=== PATIENT | female | born 1950 | race Caucasian/White ===

== ENCOUNTER 2018-11-19 02:05 | Observation (INO) | payer OTHER, MEDICAID ==
[~2018-11-19] VITALS: Ht 149.9 cm; Wt 77.5 kg
[~2018-11-19 02:05] MED LIST: ASPI-831 PO; ATOR20TA38 PO; GLIM4TAB PO; METO-319 PO; SITA50TA2 PO
[2018-11-20] VITALS (7 sets, daily range): BP systolic 135–163; BP diastolic 61–72; PULSE 64–71; RESP 18–20; Ht 149.9 cm; Wt 77.5 kg
[2018-11-20] MEDS ORDERED: ONDANSETRON 4 MG INJ IV PRN (03:00)
[2018-11-20] MEDS ORDERED: morphine 2 MG INJ IV PRN (03:00)
[2018-11-20] MEDS ORDERED: NITROGLYCERIN (SL) 0.4 MG TAB SL PRN (03:00)
[2018-11-20] MEDS ORDERED: NACL 0.9% 3 ML SYG IV SCH (03:00)
[2018-11-20] MEDS ORDERED: DOCUSATE SODIUM 100 MG CAP PO PRN (03:00)
[2018-11-20] MEDS ORDERED: ENALAPRILAT 1.25 MG INJ IV PRN (03:00)
[2018-11-20] MEDS ORDERED: GLUCAGON 1 MG INJ IM PRN (03:30)
[2018-11-20] MEDS ORDERED: GLUCOSE GEL 15 GRAM TUBE BUCCAL PRN (03:30)
[2018-11-20] MEDS ORDERED: GLUCOSE GEL 15 GRAM TUBE PO PRN ×2 (03:30)
[2018-11-20] MEDS ORDERED: DEXTROSE 50% 50 ML SYRINGE IV PRN ×2 (03:30)
[2018-11-20] MEDS: DEXTROSE 5%-0.45% NACL 1,000 ML IV SCH ×2 (03:50→17:11)
[2018-11-20] MEDS: HEPARIN 5,000 UNIT/1 ML VIAL SC SCH ×3 (05:31→22:52)
[2018-11-20] MEDS: FAMOTIDINE 20 MG INJ IV SCH ×2 (08:55→20:35)
[2018-11-20] MEDS: INSULIN ASPART [NOVOLOG] 3 ML PEN SC SCH ×4 (08:59→20:56)
[2018-11-20] MEDS ORDERED: INSULIN GLARGINE [LANTus] (100 UNITS/ML) SYG SC ONE (11:00)
[2018-11-20] MEDS ORDERED: REGADENOSON 0.4 MG/5 ML SYG ONE (11:08)
--- NOTE | 2018-11-20 11:55 | CONS ---
Assessment/Plan Assessment/Plan Hospital Course (Demo Recall) Chest pain History of encephalopathy and UTI Hypertension diabetes dyslpidemia Recommendation: Echocardiogram Avril scans are pending Continue with the medical optimization Telemetry monitoring for now Thank you for his referral. We will continue to follow along with you LEE ESCALANTE MD [facility] Consultation Date/Type/Reason Admit Date/Time Nov 20, 2018 at 02:11 Date of Consultation: Nov 20, 2018 Type of Consult Cardiology Reason for Consultation cp Requesting Provider: KIKO ASHLEY MD Date/Time of Note DATE: 11/20/18 TIME: 11:53 Hx of Present Illness cardiology consult cc and reason for consult: chest pain HPI This is a 68 year old who was transferred for evaluation of her chest pian pt is a poor historian. old records reviewed. pt was seen at [facility] with c/o ant chest pain . can not explain any exacerbating or relieving factor. intermittent and nonexertiona. PMH DM HTN Dyslipidemia recent admission with UTI altered LOC MEDS REVIEWED SOCIAL NONSMOKER Family hx no CAD ROS: as above . Past Medical History Home Meds Reported Medications Glimepiride* (Glimepiride*) 4 Mg Tablet, 4 MG PO WITH BREAKFAST, TAB 11/20/18 Sitagliptin* (Januvia*) 50 Mg Tablet, 50 MG PO BID, #30 TAB 11/20/18 Medications Current Medications Aspirin (Aspirin) 81 mg DAILY PO ; Start 11/21/18 at 09:00 Nitroglycerin (Nitroglycerin (Sl Tab) 0.4 Mg) 1 tab Q5M PRN SL CHEST PAIN; Start 11/20/18 at 03:00 Morphine Sulfate (morphine) 2 mg Q2H PRN IV PAIN LEVEL 4-6; Start 11/20/18 at 03:00 Dextrose/Sodium Chloride 1,000 ml @ 70 mls/hr [id number] IV Last administered on 11/20/18at 03:50; Admin Dose 70 MLS/HR; Start 11/20/18 at 02:53 IV Flush (NS 3 ml) 3 ml PER PROTOCOL IV ; Start 11/20/18 at 03:00 Ondansetron HCl (Zofran Inj) 4 mg Q6H PRN IV NAUSEA/VOMITING; Start 11/20/18 at 03:00 Docusate Sodium (Colace) 100 mg Q12H PRN PO .CONSTIPATION; Start 11/20/18 at 03:00 Famotidine (Pepcid Iv) 20 mg Q12 IV Last administered on 11/20/18at 08:55; Admin Dose 20 MG; Start 11/20/18 at 09:00 Heparin Sodium (Porcine) (Heparin (5000 Units/1ml)) 5,000 unit Q8 SC Last administered on 11/20/18at 05:31; Admin Dose 5,000 UNIT; Start 11/20/18 at 06:00 Insulin Aspart (Novolog Insulin Pen) NOVOLOG *MODERATE* ALGORITHM WITH MEALS BEDTIME SC Last administered on 11/20/18at 08:59; Admin Dose 8 UNIT; Start 11/20/18 at 08:00 Hydralazine HCl (Apresoline) 50 mg TID PO Last administered on 11/20/18at 03:50; Admin Dose 50 MG; Start 11/20/18 at 03:00 Enalaprilat (Vasotec Iv) 1.25 mg Q6H PRN IV SBP> 150 or DBP > 95; Start 11/20/18 at 03:00 Miscellaneous Information 1 ea NOTE XX ; Start 11/20/18 at 03:30 Glucose (Glutose) 15 gm Q15M PRN PO DECREASED GLUCOSE; Start 11/20/18 at 03:30 Glucose (Glutose) 22.5 gm Q15M PRN PO DECREASED GLUCOSE; Start 11/20/18 at 03:30 Dextrose (D50w Syringe) 25 ml Q15M PRN IV DECREASED GLUCOSE; Start 11/20/18 at 03:30 Dextrose (D50w Syringe) 50 ml Q15M PRN IV DECREASED GLUCOSE; Start 11/20/18 at 03:30 Glucagon (Glucagen) 1 mg Q15M PRN IM DECREASED GLUCOSE; Start 11/20/18 at 03:30 Glucose (Glutose) 15 gm Q15M PRN BUCCAL DECREASED GLUCOSE; Start 11/20/18 at 03:30 Insulin Glargine (Lantus) 15 units DAILY@2000 SC ; Start 11/20/18 at 20:00 Allergies: Coded Allergies: No Known Allergy (Unverified , 11/20/18) Social History Smoking Status: Never smoker Exam/Review of Systems Vital Signs Vitals Vital Signs Date Temp Pulse Resp B/P (MAP) Pulse Ox O2 O2 Flow FiO2 Time Delivery Rate 11/20/18 98.3 69 20 141/68 95 Room Air 10:50 (92) Exam Exam General: Obese no acute distress HEENT: NC/AT. pupils are equal. round. NECK: NO JVD. no stridor. CV: RRR. systolic murmur; no gallop or rubs. PULM: no wheezing or rhonchi. GI: SOFT, NT, ND, no rebound or guarding Extremity: trace B/L LE edema. no clubbing. neuro: awake and alert, . Psych: calm and pleasant rectal: deferred EKG was personally viewed showed normal sinus rhythm normal Labs Result Diagram: 11/20/18 0435 11/20/18 0436 Results 24hrs Laboratory Tests Test 11/20/18 04:35 11/20/18 04:36 11/20/18 08:08 11/20/18 08:25 White Blood Count 10.7 Red Blood Count 4.39 Hemoglobin 12.8 Hematocrit 38.9 Mean Corpuscular 88.6 Volume Mean Corpuscular 29.2 Hemoglobin Mean Corpuscular 32.9 Hemoglobin Concent Red Cell 12.4 Distribution Width Platelet Count 239 Mean Platelet Volume 11.7 H Immature 0.400 Granulocytes % Neutrophils % 50.4 Lymphocytes % 30.8 Monocytes % 9.6 Eosinophils % 8.0 H Basophils % 0.8 Nucleated Red Blood 0.0 Cells % Immature 0.040 H Granulocytes # Neutrophils # 5.4 Lymphocytes # 3.3 H Monocytes # 1.0 H Eosinophils # 0.9 H Basophils # 0.1 Nucleated Red Blood 0.0 Cells # D-Dimer 586.61 H D-Dimer Comment Sodium Level 134 L Potassium Level 3.9 Chloride Level 96 L Carbon Dioxide Level 32 H Anion Gap 6 Blood Urea Nitrogen 13 Creatinine 0.45 Est Glomerular > 60 Filtrat Rate mL/min Glucose Level 292 H Hemoglobin A1c 10.0 H Calcium Level 9.2 Phosphorus Level 3.5 Magnesium Level 1.9 Total Bilirubin 0.4 Direct Bilirubin 0.00 Indirect Bilirubin 0.4 Aspartate Amino 23 Transf (AST/SGOT) Alanine 29 Aminotransferase (AL T/SGPT) Alkaline Phosphatase 84 Creatine Kinase 27 30 Creatine Kinase 3.7 3.4 Index Creatinine Kinase MB 1.00 1.01 (Mass) Troponin I < 0.012 < 0.012 B-Type Natriuretic 241 H Peptide Total Protein 6.1 Albumin 3.2 L Globulin 2.90 Albumin/Globulin 1.10 Ratio Triglycerides Level 194 H Cholesterol Level 172 LDL Cholesterol, 95 Calculated HDL Cholesterol 38 Cholesterol/HDL 4.5 Ratio Free Thyroxine Index 3.01 Thyroxine (T4) 8.2 Triiodothyronine 36.7 (T3) Uptake Urine Opiates Screen Negative Urine Barbiturates Negative Urine Amphetamines Negative Screen Urine Negative Benzodiazepines Screen Urine Cocaine Screen Negative Urine Cannabinoids Negative Test 11/20/18 08:46 Bedside Glucose 288 H Medications Medications Current Medications Aspirin (Aspirin) 81 mg DAILY PO ; Start 11/21/18 at 09:00 Nitroglycerin (Nitroglycerin (Sl Tab) 0.4 Mg) 1 tab Q5M PRN SL CHEST PAIN; Start 11/20/18 at 03:00 Morphine Sulfate (morphine) 2 mg Q2H PRN IV PAIN LEVEL 4-6; Start 11/20/18 at 03:00 Dextrose/Sodium Chloride 1,000 ml @ 70 mls/hr [id number] IV Last administered on 11/20/18at 03:50; Admin Dose 70 MLS/HR; Start 11/20/18 at 02:53 IV Flush (NS 3 ml) 3 ml PER PROTOCOL IV ; Start 11/20/18 at 03:00 Ondansetron HCl (Zofran Inj) 4 mg Q6H PRN IV NAUSEA/VOMITING; Start 11/20/18 at 03:00 Docusate Sodium (Colace) 100 mg Q12H PRN PO .CONSTIPATION; Start 11/20/18 at 03:00 Famotidine (Pepcid Iv) 20 mg Q12 IV Last administered on 11/20/18at 08:55; Admin Dose 20 MG; Start 11/20/18 at 09:00 Heparin Sodium (Porcine) (Heparin (5000 Units/1ml)) 5,000 unit Q8 SC Last administered on 11/20/18 05:31; Admin Dose 5,000 UNIT; Start 11/20/18 at 06:00 Insulin Aspart (Novolog Insulin Pen) NOVOLOG *MODERATE* ALGORITHM WITH MEALS BEDTIME SC Last administered on 11/20/18 08:59; Admin Dose 8 UNIT; Start 11/20/18 at 08:00 Hydralazine HCl (Apresoline) 50 mg TID PO Last administered on 11/20/18at 03:50; Admin Dose 50 MG; Start 11/20/18 at 03:00 Enalaprilat (Vasotec Iv) 1.25 mg Q6H PRN IV SBP> 150 or DBP > 95; Start 11/20/18 at 03:00 Miscellaneous Information 1 ea NOTE XX ; Start 11/20/18 at 03:30 Glucose (Glutose) 15 gm Q15M PRN PO DECREASED GLUCOSE; Start 11/20/18 at 03:30 Glucose (Glutose) 22.5 gm Q15M PRN PO DECREASED GLUCOSE; Start 11/20/18 at 03:30 Dextrose (D50w Syringe) 25 ml Q15M PRN IV DECREASED GLUCOSE; Start 11/20/18 at 03:30 Dextrose (D50w Syringe) 50 ml Q15M PRN IV DECREASED GLUCOSE; Start 11/20/18 at 03:30 Glucagon (Glucagen) 1 mg Q15M PRN IM DECREASED GLUCOSE; Start 11/20/18 at 03:30 Glucose (Glutose) 15 gm Q15M PRN BUCCAL DECREASED GLUCOSE; Start 11/20/18 at 03:30 Insulin Glargine (Lantus) 15 units DAILY@2000 SC ; Start 11/20/18 at 20:00 LEE ESCALANTE MD Nov 20, 2018 11:55
--- NOTE | 2018-11-20 14:43 | RADRPT ---
Vent Rate: 75 bpm RR Interval: 796 msec MS Interval: 161 msec QRS Duration: 80 msec QT Interval: 391 msec QTC Interval: 438 msec P-R-T [place]: 31 - 66 - 71 degrees Sinus rhythm...normal P axis, V-rate 50- 99 Electronically Signed By: Alli Cuevas
--- NOTE | 2018-11-20 17:12 | HP ---
Date/Time of Note Date/Time of Note DATE: 11/20/18 TIME: 17:06 Assessment/Plan VTE Prophylaxis Pharmacological prophylaxis: heparin Lines/Catheters IV Catheter Type (from Nrs): Peripheral IV Assessment/Plan Hospital Course 68 years old female with a history of poorly controlled diabetes, hypertension, and cognitive decline who presented to the emergency room at [facility] with chest pain. She was deemed stable to be transferred for further cardiac work-up to contracted hospital given negative troponin and unremarkable EKG for ACS. Her EKG was however abnormal. Upon admission to [facility] she was chest pain-free. She was recently admitted to [facility] for altered mental status and discharged to rehabilitation. Patient has been recently confused and disoriented to time. She had an episode at home that she exited the house wandering without clothing. She has had a significant cognitive decline over the course of past few months, #Chest pain , serial troponin was negative , no SOB, no pleuritic CP to suggest PE , CP free at the time of visit , echocardiogram and NM Stress test were unremarkable , Patient was seen in consultation with cardiology Dr Guzman . Echo showed Stage I diastolic dysfunction). Moderate concentric left ventricular hypertrophy. The left ventricular ejection fraction is visually estimated at 65 %. - Patient is stable to be discharged home as her cardiac work up was negative for ischemia . I prescribed Metop and ASA as well as Lipitor given poorly controlled DM for risk reduction of CAD #Poorly controlled DM, A1c10 only on Oral agents , will need referral to endocrinology , DW daughter, consulted case management for referral , will b enefit from INsulin , daughter states that they have been prescribed insulin but she is not using because they don't know how to use it , CM consulted for HH # Encephalopathy , chronic , suspect , early dementia , recent admission at [facility] for AMS with negative work up , will need referral to neurology as outpatient for neurocognitive evaluation , CM consulted and discussed with daughter #HTN, started Metop #HLD , started Lipitor #PPX: Heparin and Pepcid Result Diagram: 11/20/18 0435 11/20/18 0436 Results 24hrs Laboratory Tests Test 11/20/18 04:35 11/20/18 04:36 11/20/18 08:08 11/20/18 08:25 White Blood Count 10.7 Red Blood Count 4.39 Hemoglobin 12.8 Hematocrit 38.9 Mean Corpuscular 88.6 Volume Mean Corpuscular 29.2 Hemoglobin Mean Corpuscular 32.9 Hemoglobin Concent Red Cell 12.4 Distribution Width Platelet Count 239 Mean Platelet Volume 11.7 H Immature 0.400 Granulocytes % Neutrophils % 50.4 Lymphocytes % 30.8 Monocytes % 9.6 Eosinophils % 8.0 H Basophils % 0.8 Nucleated Red Blood 0.0 Cells % Immature 0.040 H Granulocytes # Neutrophils # 5.4 Lymphocytes # 3.3 H Monocytes # 1.0 H Eosinophils # 0.9 H Basophils # 0.1 Nucleated Red Blood 0.0 Cells # D-Dimer 586.61 H D-Dimer Comment Sodium Level 134 L Potassium Level 3.9 Chloride Level 96 L Carbon Dioxide Level 32 H Anion Gap 6 Blood Urea Nitrogen 13 Creatinine 0.45 Est Glomerular > 60 Filtrat Rate mL/min Glucose Level 292 H Hemoglobin A1c 10.0 H Calcium Level 9.2 Phosphorus Level 3.5 Magnesium Level 1.9 Total Bilirubin 0.4 Direct Bilirubin 0.00 Indirect Bilirubin 0.4 Aspartate Amino 23 Transf (AST/SGOT) Alanine 29 Aminotransferase (AL T/SGPT) Alkaline Phosphatase 84 Creatine Kinase 27 30 Creatine Kinase 3.7 3.4 Index Creatinine Kinase MB 1.00 1.01 (Mass) Troponin I < 0.012 < 0.012 B-Type Natriuretic 241 H Peptide Total Protein 6.1 Albumin 3.2 L Globulin 2.90 Albumin/Globulin 1.10 Ratio Triglycerides Level 194 H Cholesterol Level 172 LDL Cholesterol, 95 Calculated HDL Cholesterol 38 Cholesterol/HDL 4.5 Ratio Free Thyroxine Index 3.01 Thyroxine (T4) 8.2 Triiodothyronine 36.7 (T3) Uptake Urine Opiates Screen Negative Urine Barbiturates Negative Urine Amphetamines Negative Screen Urine Negative Benzodiazepines Screen Urine Cocaine Screen Negative Urine Cannabinoids Negative Test 11/20/18 08:46 11/20/18 12:57 Bedside Glucose 288 H 183 HPI/ROS Admit Date/Time Admit Date/Time Nov 20, 2018 at 02:11 Hx of Present Illness 68 years old female with a history of poorly controlled diabetes, hypertension, and cognitive decline who presented to the emergency room at [facility] with chest pain. She was deemed stable to be transferred for further cardiac work-up to [facility] given negative troponin and unremarkable EKG for ACS. Her EKG was also abnormal. Upon admission to [facility] she was chest pain-free. Patient is a poor historian. She appears confused. Source of history is based on my conversation with her daughter at the bedside. The admitted to [facility] for altered mental status and discharged to rehabilitation. Patient has been recently confused and disoriented to time. She had an episode at home that she exited the house wandering without clothing. She has had a significant cognitive decline over the course of months, ROS No fever, no chills, no change in weight or appetite. No focal weakness or numbness. No palpitations no orthopnea no PND, no cough, no phlegm. No d iarrhea , melena, no hematochezia, no hematemesis. PMH/Family/Social Past Medical History Medications Current Medications Aspirin (Aspirin) 81 mg DAILY PO ; Start 11/21/18 at 09:00 Nitroglycerin (Nitroglycerin (Sl Tab) 0.4 Mg) 1 tab Q5M PRN SL CHEST PAIN; Start 11/20/18 at 03:00 Morphine Sulfate (morphine) 2 mg Q2H PRN IV PAIN LEVEL 4-6; Start 11/20/18 at 03:00 Dextrose/Sodium Chloride 1,000 ml @ 70 mls/hr [id number] IV Last administered on 11/20/18at 03:50; Admin Dose 70 MLS/HR; Start 11/20/18 at 02:53 IV Flush (NS 3 ml) 3 ml PER PROTOCOL IV ; Start 11/20/18 at 03:00 Ondansetron HCl (Zofran Inj) 4 mg Q6H PRN IV NAUSEA/VOMITING; Start 11/20/18 at 03:00 Docusate Sodium (Colace) 100 mg Q12H PRN PO .CONSTIPATION; Start 11/20/18 at 03:00 Famotidine (Pepcid Iv) 20 mg Q12 IV Last administered on 11/20/18at 08:55; Admin Dose 20 MG; Start 11/20/18 at 09:00 Heparin Sodium (Porcine) (Heparin (5000 Units/1ml)) 5,000 unit Q8 SC Last administered on 11/20/18at 16:29; Admin Dose 5,000 UNIT; Start 11/20/18 at 06:00 Insulin Aspart (Novolog Insulin Pen) NOVOLOG *MODERATE* ALGORITHM WITH MEALS BEDTIME SC Last administered on 11/20/18at 13:01; Admin Dose 4 UNIT; Start 11/20/18 at 08:00 Hydralazine HCl (Apresoline) 50 mg TID PO Last administered on 11/20/18at 03:50; Admin Dose 50 MG; Start 11/20/18 at 03:00 Enalaprilat (Vasotec Iv) 1.25 mg Q6H PRN IV SBP> 150 or DBP > 95; Start 11/20/18 at 03:00 Miscellaneous Information 1 ea NOTE XX ; Start 11/20/18 at 03:30 Glucose (Glutose) 15 gm Q15M PRN PO DECREASED GLUCOSE; Start 11/20/18 at 03:30 Glucose (Glutose) 22.5 gm Q15M PRN PO DECREASED GLUCOSE; Start 11/20/18 at 03:30 Dextrose (D50w Syringe) 25 ml Q15M PRN IV DECREASED GLUCOSE; Start 11/20/18 at 03:30 Dextrose (D50w Syringe) 50 ml Q15M PRN IV DECREASED GLUCOSE; Start 11/20/18 at 03:30 Glucagon (Glucagen) 1 mg Q15M PRN IM DECREASED GLUCOSE; Start 11/20/18 at 03:30 Glucose (Glutose) 15 gm Q15M PRN BUCCAL DECREASED GLUCOSE; Start 11/20/18 at 03:30 Insulin Glargine (Lantus) 15 units DAILY@2000 SC ; Start 11/20/18 at 20:00 Coded Allergies: No Known Allergy (Unverified , 11/20/18) Social History Smoking Status: Never smoker Exam/Review of Systems Vital Signs Vitals Vital Signs Date Temp Pulse Resp B/P (MAP) Pulse Ox O2 O2 Flow FiO2 Time Delivery Rate 11/20/18 98.0 68 18 135/62 98 16:14 (86) 11/20/18 Room Air 10:50 Exam Exam Gen.: In no acute distress, pleasant and cooperative, appears disoriented and disheveled Eyes: Anicteric, conjunctiva normal, PERRLA, EOM intact HEENT: Normocephalic, atraumatic, hearing grossly intact, oral mucosa moist, no oral lesions Neck: Supple, no masses, trachea midline Cardiovascular: Regular rate and rhythm, no peripheral edema, no murmurs, no gallops, no rubs Respiratory: Clear to auscultation bilaterally, no use of accessory muscles of respiration, no wheezes, expiration not prolonged Extremities: No cyanosis, no edema, no calf tenderness, pulses bilaterally palpable, extremities warm and perfused Abdomen: Soft, not distended, nontender, bowel sounds present, no guarding, no rebound Neurological: Alert and oriented x2 disoriented to time , speech is slow CN 2- 12 no deficit, no motor or sensory deficit, coordination normal : No Guaman catheter Dermatologic no rash, no ulcers Heme: No acute bleeding, no ecchymosis or petechia Psych: No anxiety depression, mood and affect appropriate KIKO ASHLEY MD Nov 20, 2018 17:12
--- NOTE | 2018-11-20 17:27 | PDOCDIS ---
Discharge Instructions DIAGNOSIS Discharge Diagnosis Poorly controlled diabetes Cognitive impairment Hypertension Hyperlipidemia Obesity CONDITION [id number] Patient Condition: [id number] Stable HOME CARE INSTRUCTIONS: [id number] Diet Instructions: [id number] Low Fat /Cholesterol [id number] Special Diet: [id number] Diabetic FOLLOW UP/APPOINTMENTS Follow-up Plan Follow-up with primary care physician in the next 7 days for poorly controlled diabetes and cognitive decline KIKO ASHLEY MD Nov 20, 2018 17:27
--- NOTE | 2018-11-20 18:12 | RADRPT ---
Echocardiogram Report Patient Name: Nataliia SOTELO ID: [id number] : 1950 (68y 8m)Study Date: 11/20/2018 1:12:45 PM Gender: FAccession #: [id number] Tech: [facility] Location: [facility] 2 Ref.Physician: LEE GUZMAN Height(Cm): 150 BSA: 1.79Weight(Kg): 77.1 Quality: AdequateOrder Physician: LEE GUZMAN Account #: Procedures: Echocardiographic Report: Transthoracic echocardiogram examination. Indications: Chest Pain. Measurements: 2D/M Mode Doppler Measurement Value Normal Range Measurement Value Normal Range LVIDd 2D 4.2 [ 3.8 - 5.2 ] cm AV Peak William 1.2 [ 100.0 - 170.0 ] cm/sec LVIDs 2D 2.6 [ 2.2 - 3.5 ] cm AV Peak PG 6.0 [ 2.0 - 9.0 ] mmHg LVPWd 2D 1.3 [ 0.6 - 0.9 ] cm LVOT Peak William 0.9 [ 70.0 - 110.0 ] cm/sec IVSd 2D 1.5 [ 0.6 - 0.9 ] cm LVOT Peak PG 3.0 [ 2.0 - 6.0 ] mmHg IVS/LVPW 2D 1.2 ratio MV E Peak William 0.9 [ 60.0 - 130.0 ] cm/sec AoR Diam 2D 3.1 [ 2.3 - 3.1 ] cm MV A Peak William 1.3 [ 100.0 - 120.0 ] cm/sec LA/Ao 2D 1 ratio MV E/A 0.7 [ 0.8 - 1.5 ] ratio LA Dimen 2D 4.1 [ 2.7 - 3.8 ] cm MV PHT 63.0 [ 20.0 - 100.0 ] msec MV Decel Time 214 [ 104 - 258 ] msec MV E/A 0.7 [ 0.8 - 1.5 ] ratio MV PHT 63.0 [ 20.0 - 100.0 ] msec TR Peak William 2.4 [ 100.0 - 280.0 ] cm/sec TR Peak PG 23.0 mmHg PV Peak William 0.9 [ 40.0 - 80.0 ] cm/sec PV Peak PG 4.0 mmHg Findings: Left Ventricle: Normal left ventricular cavity size. Normal left ventricular systolic function. Tissue Doppler/Mitral Doppler indices are consistent with impaired relaxation (Stage I diastolic dysfunction). Moderate concentric left ventricular hypertrophy. The left ventricular ejection fraction is visually estimated at 65 %. Right Ventricle: Normal right ventricular size. Normal right ventricular systolic function. Left Atrium: There is moderate enlargement of left atrium appreciated best by MIKE of 35. Right Atrium: The right atrium is normal in size and appearance. Atrial Septum: Normal atrial septum. Mitral Valve: Normal appearance of the mitral valve leaflets. Mild mitral annular calcification. Trivial mitral regurgitation. Aortic Valve: No significant aortic stenosis or insufficiency. Normal trileaflet aortic valve structure. Tricuspid Valve: Normal appearance of the tricuspid valve. The estimated Peak RVSP is 33 mmHg. There is mild tricuspid regurgitation. Pulmonic Valve: Normal pulmonic valve appearance and function with trivial (physiologic) regurgitation. There is trace pulmonic regurgitation. Pericardium: Normal pericardium with no significant pericardial effusion. Aorta: Normal aortic root. IVC: Normal inferior vena cava appearance. Pulmonary Artery: Normal pulmonary artery size. Conclusions: Normal left ventricular cavity size. Normal left ventricular systolic function. Tissue Doppler/Mitral Doppler indices are consistent with impaired relaxation (Stage I diastolic dysfunction). Moderate concentric left ventricular hypertrophy. The left ventricular ejection fraction is visually estimated at 65 %. There is moderate enlargement of left atrium appreciated best by MIKE of 35. Normal appearance of the mitral valve leaflets. Mild mitral annular calcification. Trivial mitral regurgitation. No significant aortic stenosis or insufficiency. Normal trileaflet aortic valve structure. Normal appearance of the tricuspid valve. The estimated Peak RVSP is 33 mmHg. There is mild tricuspid regurgitation. Electronically Signed By: Lee Guzamn 2018-11-20 18:10:59 PDT
[2018-11-20] MEDS ORDERED: INSULIN GLARGINE [LANTus] (100 UNITS/ML) SYG SC SCH (20:00)
[2018-11-21 04:10] VITALS: BP 144/73; PULSE 66; RESP 17
[2018-11-21] MEDS: HEPARIN 5,000 UNIT/1 ML VIAL SC SCH ×2 (05:10→08:55)
[2018-11-21] MEDS: DEXTROSE 5%-0.45% NACL 1,000 ML IV SCH (07:29)
[2018-11-21 07:35] VITALS: BP 152/72; PULSE 72; RESP 18
[2018-11-21] MEDS: INSULIN ASPART [NOVOLOG] 3 ML PEN SC SCH ×2 (08:17→11:43)
[2018-11-21] MEDS: FAMOTIDINE 20 MG INJ IV SCH (08:48)
[2018-11-21] MEDS ORDERED: ASPIRIN 81 MG TAB PO SCH (09:00)
--- NOTE | 2018-11-21 10:36 | DS ---
Date/Time of Note Date/Time of Note DATE: 11/21/18 TIME: 10:33 Discharge Summary Admission/Discharge Info Admit Date/Time Nov 20, 2018 at 02:11 Discharge Date/Time Discharge Diagnosis Poorly controlled diabetes Cognitive impairment Hypertension Hyperlipidemia Obesity Hx of Present Illness 68 years old female with a history of poorly controlled diabetes, hypertension, and cognitive decline who presented to the emergency room at [facility] with chest pain. She was deemed stable to be transferred for further cardiac work-up to [facility] given negative troponin and unremarkable EKG for ACS. Her EKG was also abnormal. Upon admission to [facility] she was chest pain-free. Patient is a poor historian. She appears confused. Source of history is based on my conversation with her daughter at the bedside. The admitted to [facility] for altered mental status and discharged to rehabilitation. Patient has been recently confused and disoriented to time. She had an episode at home that she exited the house wandering without clothing. She has had a significant cognitive decline over the course of months, Hospital Course 68 years old female with a history of poorly controlled diabetes, hypertension, and cognitive decline who presented to the emergency room at [facility] with chest pain. She was deemed stable to be transferred for further cardiac work-up to [facility] given negative troponin and unremarkable EKG for ACS. Her EKG was however abnormal. Upon admission to [facility] she was chest pain-free. She was recently admitted to [facility] for altered mental status and discharged to rehabilitation. Patient has been recently confused and disoriented to time. She had an episode at home that she exited the house wandering without clothing. She has had a significant cognitive decline over the course of past few months, #Chest pain , serial troponin was negative , no SOB, no pleuritic CP to suggest PE , CP free at the time of visit , echocardiogram and NM Stress test were unremarkable , Patient was seen in consultation with cardiology Dr Guzman . Echo showed Stage I diastolic dysfunction). Moderate concentric left ventricular hypertrophy. The left ventricular ejection fraction is visually estimated at 65 %. - Patient is stable to be discharged home as her cardiac work up was negative for ischemia . I prescribed Metop and ASA as well as Lipitor given poorly controlled DM for risk reduction of CAD #Poorly controlled DM, A1c10 only on Oral agents , will need referral to endocrinology , DW daughter, consulted case management for referral , will benefit from Insulin , daughter states that they have been prescribed insulin but she is not using it because they don't know how to use it , CM consulted for HH # Encephalopathy , chronic , suspect , early dementia , recent admission at [place] for AMS with negative work up , will need referral to neurology as outpatient for neurocognitive evaluation , CM consulted and discussed with daughter #HTN, started Metop #HLD , started Lipitor #PPX: Heparin and Pepcid Home Meds Active Scripts Atorvastatin Calcium* (Atorvastatin Calcium*) 20 Mg Tablet, 20 MG PO QHS, #30 TAB Prov:KIKO ASHLEY MD 11/20/18 Metoprolol Succinate* (Toprol XL*) 50 Mg Tab.er.24h, 50 MG PO DAILY, #30 TAB Prov:KIKO ASHLEY MD 11/20/18 Aspirin (Aspirin) 81 Mg Chew, 81 MG PO DAILY for 30 Days, #30 TAB Prov:KIKO ASHLEY MD 11/20/18 Reported Medications Glimepiride* (Glimepiride*) 4 Mg Tablet, 4 MG PO WITH BREAKFAST, TAB 11/20/18 Sitagliptin* (Januvia*) 50 Mg Tablet, 50 MG PO BID, #30 TAB 11/20/18 Follow-up Plan Follow-up with primary care physician in the next 7 days for poorly controlled diabetes and cognitive decline Primary Care Provider Not On Staff Doctor Pending Labs Laboratory Tests Test 11/20/18 12:57 11/20/18 18:21 11/20/18 20:39 11/21/18 05:02 Bedside 183 235 278 197 Glucose mg/dL (70-220) mg/dL (70-220) mg/dL (70-220) mg/dL (70-220) KIKO ASHLEY MD Nov 21, 2018 10:36
[2018-11-21 12:10] VITALS: BP 134/65; PULSE 68; RESP 18
== END 2018-11-21 13:55 | disposition home or self-care (01) ==
LOC: 6WM 11-20 02:11 → INTOOBSV 11-20 02:11
PROVIDERS: ADMIT Internal Medicine; ATTEND Internal Medicine
DX: R07.9 Chest pain, unspecified (principal); E11.65 Type 2 diabetes mellitus with hyperglycemia; I10 Essential (primary) hypertension; G31.84 Mild cognitive impairment of uncertain or unknown etiology; G93.40 Encephalopathy, unspecified; E78.5 Hyperlipidemia, unspecified; E66.9 Obesity, unspecified; Z68.34 Body mass index [BMI] 34.0-34.9, adult; Z79.82 Long term (current) use of aspirin; Z79.4 Long term (current) use of insulin
CPT/HCPCS: 78452; 80053; 80061; 80307; 82550; 82553; 82962; 83036; 83735; 83880; 84100; 84436; 84479; 84484; 85025; 85378; 93005; 93017; 93306; A9500; A9505; G0378; J1644; J1815; J2270; J2785; J7042; 99217